=== PATIENT | female | born 1960 | race Caucasian/White ===

== ENCOUNTER 2022-11-14 07:56 | Day surgery (SDC) | payer OTHER, SELFPAY ==
[2022-11-14 08:48] VITALS: BP 162/85; TEMP 36.3; O2SAT 97
[2022-11-14 09:11] VITALS: BP 201/92; PULSE 42; RESP 20; O2SAT 98
[2022-11-14 09:17] VITALS: BP 170/85; PULSE 81; RESP 20; O2SAT 95
--- NOTE | 2022-11-14 11:35 | W.PM.PROCNOT ---
Date of procedure: 11/14/22 Procedure: Left Cervical 3/4, 4/5 facet injection Preop diagnosis includes pain secondary to cervical spondylosis, Postop diagnosis same Under fluoroscopic guidance Solution injected: 2milliliters Marcaine 0.25% Anesthesia :none Immediate complications none Time out process compliant After informed consent obtained from the patient placed in the Prone proposition . area was prepped and draped in a sterile fashion using betadine. 25 gauge spinal needle inserted over each of the above mentioned target areas . [place] were directed towards the target under fluoroscopic guidance . after encountering each of the targets , no indication of intravascular intraneuronal or intrathecal needle tip placement. Then 0 .5 to 1 Milliliter was injected at each level. [place] removed postoperatively. Patient transferred to recovery in stable condition to be discharged home after meeting criteria Surgeon: Tory Hilliard Condition: stable
[2022-11-15] MEDS: BUPIVACAINE HCL 0.25% PF 25 MG/10 ML VIAL INJ (12:33)
== END 2022-11-14 09:20 | disposition home or self-care (01) ==
PROVIDERS: PCP Internal Medicine; Visit Provider Anesthesiology Pain Medicine
DX: M47.812 Spondylosis without myelopathy or radiculopathy, cervical region (principal); M54.2 Cervicalgia
CPT/HCPCS: 64490; 64491

== ENCOUNTER 2022-12-07 08:55 | Outpatient (OUT) | payer OTHER, SELFPAY ==
--- NOTE | 2022-12-07 09:23 | PM.CN ---
Consult Note: HPI Data of Consult Patient: known to practice within the last 3 years Consult date: 12/07/22 Requesting Physician: HOLLIS MCKEON NP Primary Care Provider: SASCHA HENRY Consult Narrative Narrative: Patient is here for f/u of neck pain. She had initial MBB cervical left sided C3/4, C4/5 on 11/14/22. She recieved 100% relief of pain with increased fx for several hours after procedure. She would like to proceed with second MBB of same area. No radicular sx . No new sensorimotor sx or bowel or bladder issues. Medication regimen is controlling pain and assisting patient with ability to perform ADLs. cc:: CC: HOLLIS MCKEON NP Review of Systems ROS Status of ROS 10 or more systems reviewed and unremarkable except as noted in history and below Musculoskeletal Reports: neck pain PFSH PFSH Medical History (Updated 12/07/22 @ 09:36 by HOLLIS MCKEON NP) Surgical History Meds Home Medications and Allergies Home Medications Medication Instructions Recorded Confirmed Type baclofen 10 mg tablet 10 mg PO TID 11/08/22 11/14/22 History buspirone 5 mg PO QID 11/08/22 11/14/22 History levothyroxine 88 mcg capsule 88 mcg PO QDAY 11/08/22 11/14/22 History meloxicam 15 mg tablet 15 mg PO QDAY 11/08/22 11/14/22 History Allergies Allergy/AdvReac Type Severity Reaction Status Date / Time clindamycin Allergy Unknown Verified 11/08/22 15:26 Iodinated Contrast Media Allergy Unknown Verified 11/08/22 15:26 Penicillins Allergy Unknown Verified 11/08/22 15:26 avelox Allergy Unknown Uncoded 11/08/22 15:26 Exam Constitutional Documenting provider has reviewed patient's vital signs: yes Common normals: no apparent distress, average body habitus, oriented x3, no limitations, healthy appearing, alert and well nourished General appearance: cooperative, comfortable and well developed Orientation/consciousness: Yes awake, Yes oriented to person, Yes oriented to place and Yes oriented to time HENUT Common normals: normocephalic and moist oral mucous membranes Neck & C-Spine Common normals: full ROM General: normal visual inspection and trachea midline Cervical spine: pain with cervical ROM, cervical spine tenderness, paracervical muscle tenderness, paracervical muscle spasm and trapezius muscle tenderness Other: pain with ROM. Muscle strength 5/5 bilat UE with intact sensation Respiratory Common normals: normal respiratory effort, no retractions and no use of accessory muscles Effort & inspection: able to speak in complete sentences and symmetric chest movement Extremity Common normals: normal to inspection, full ROM and normal capillary refill Assessment and Plan Assessment and Plan (1) Cervical spondylosis: (2) Muscle spasm: Plan schedule for second left cervical MBB C3/4, C4/5 under fluoroscopy
== END 2022-12-07 08:56 | disposition home or self-care (01) ==
PROVIDERS: PCP Internal Medicine; Visit Provider Nurse Practitioner
DX: M47.812 Spondylosis without myelopathy or radiculopathy, cervical region (principal); M62.838 Other muscle spasm; M54.2 Cervicalgia
CPT/HCPCS: G0463

== ENCOUNTER 2023-01-23 08:41 | Day surgery (SDC) | payer OTHER, SELFPAY ==
[2023-01-23 09:00] VITALS: BP 156/94; PULSE 71; RESP 18; O2SAT 99
[2023-01-23 10:13] VITALS: BP 220/94; PULSE 84; RESP 20; O2SAT 100
[2023-01-23 10:14] VITALS: RESP 20
[2023-01-23] MEDS: BUPIVACAINE HCL 0.25% PF 25 MG/10 ML VIAL 4 ML INJ (10:14)
[2023-01-23 10:16] VITALS: BP 193/94; PULSE 86; O2SAT 98
--- NOTE | 2023-01-23 11:07 | W.PM.PROCNOT ---
Date of procedure: 01/23/23 Pre-op diagnosis: cervical spondylosis Post-op diagnosis: same as pre-op Procedure: Left cervical 3/4, 4,5 facet injection Under fluoroscopic guidance Solution injected: 2millilitersMarcaine 0.25% Immediate complications none Time out process compliant After informed consent obtained from the patient placed in the Prone proposition . area was prepped and draped in a sterile fashion using betadine. 25 gauge spinal needle inserted over each of the above mentioned target areas . [place] were directed towards the target under fluoroscopic guidance . after encountering each of the targets , no indication of intravascular intraneuronal or intrathecal needle tip placement. Then 0 .5 to 1 Milliliter was injected at each level. [place] removed postoperatively. patient transferred to recovery in stable condition to be discharged home after meeting criteria Anesthesia: Local Surgeon: Tory Hilliard Condition: stable
== END 2023-01-23 10:21 | disposition home or self-care (01) ==
LOC: SURGOUT 08:42
PROVIDERS: PCP Internal Medicine; Visit Provider Anesthesiology Pain Medicine
DX: M47.812 Spondylosis without myelopathy or radiculopathy, cervical region (principal)
CPT/HCPCS: 64490; 64491

== ENCOUNTER 2023-02-07 09:31 | Outpatient (OUT) | payer OTHER, SELFPAY ==
--- NOTE | 2023-02-07 10:00 | PM.CN ---
Consult Note: HPI Data of Consult Patient: known to practice within the last 3 years Requesting Physician: Jenna Hansen NP Primary Care Provider: SASCHA HENRY Consult Narrative Reason for consult: RFA follow up Narrative: Nereyda Burgos a pleasant 62 year old female presents for follow up on chronic neck pain. Patient reporting 100% pain relief and functional improvement immediately following and for one day after MBB #2 on left C3/4 4/5 facets. Patient would like to proceed with thermal RFA. cc:: CC: Jenna Hansen NP Review of Systems ROS Status of ROS 10 or more systems reviewed and unremarkable except as noted in history and below [facility] Medical History (Updated 02/07/23 @ 10:13 by Jenna Hansen NP) Surgical History Meds Home Medications and Allergies Home Medications Medication Instructions Recorded Confirmed Type baclofen 10 mg tablet 10 mg PO TID 11/08/22 01/23/23 History buspirone 5 mg PO QID 11/08/22 01/23/23 History levothyroxine 88 mcg capsule 88 mcg PO QDAY 11/08/22 01/23/23 History meloxicam 15 mg tablet 15 mg PO QDAY 11/08/22 01/23/23 History Allergies Allergy/AdvReac Type Severity Reaction Status Date / Time clindamycin Allergy Unknown Verified 01/23/23 08:57 Iodinated Contrast Media Allergy Unknown Verified 01/23/23 08:57 Penicillins Allergy Unknown Verified 01/23/23 08:57 avelox Allergy Unknown Uncoded 01/23/23 08:57 Exam Constitutional Documenting provider has reviewed patient's vital signs: yes Common normals: no apparent distress, oriented x3, healthy appearing, alert and well nourished General appearance: cooperative HENHI Common normals: normocephalic, hearing grossly normal bilaterally and moist oral mucous membranes Head and scalp: normocephalic Eye Common normals: PERRL Pupil: PERRL Neck & C-Spine General: normal visual inspection Cervical spine: cervical ROM abnormal, pain with cervical ROM and paracervical muscle tenderness Other: predominately axial neck pain sternocleidomastoid muscle tightness and tenderness Neck images: 1. 2. 3. Chest Common normals: inspection of chest normal Respiratory Common normals: normal respiratory effort, no retractions and no use of accessory muscles Neuro Common normals: oriented x3, CN's II-XII intact bilaterally, moves all extremities, no focal motor deficits, no sensory deficits noted, deep tendon reflexes 2+ bilaterally and gait normal Sensorium/orientation: alert Motor exam: strength 5/5 throughout and no movement abnormalities noted Other: no BUE or BLE numbness tingling or loss of strength Psych Common normals: mental status grossly normal, thought process normal, cooperative, affect normal, speech normal and activity/motor behavior normal Speech: normal speech Thought process: normal thought process Results Additional Findings Additional findings: I have checked an [place]AR[place] report on this patient today and there are no aberrancies noted in the prescribing history.?? A drug screen was completed and reviewed within the last year, and if there has not been a drug screen completed we ordered one today to monitor higher risk, state monitored pain medication use. As part of providing excellent, safe, comprehensive care, the following was completed at our patient's visit: 1. A medication reconciliation and review to ensure accurate knowledge of current/active medications, including asking our patients to inform us about any [id number] medications or herbal remedies/nutritional supplements/alternative remedies. 2. A review to specifically ensure our patients have had annual screening for: elevated body mass index (BMI), tobacco use, screening for depression, and screening for unhealthy alcohol use. When screening is concerning, patients are provided with education and the specific recommendation to discuss the concerning health issue and treatment options with their primary care provider. RINA 16% today with pain that prevents her from lifting heavy objects. The patient has had over 3 months of moderate to severe neck pain with functional impairment and inadequate response to conservative care including NSAIDS (unless there are contraindication such as concurrent blood thinners), multiple oral or topical pain medications, and home exercise program/physical therapy.? Patient has completed >6 weeks of guided home exercise program and/or formal physical therapy program without relief of their symptoms.? I have reviewed the imaging of the cervical spine and no red flags were identified.? The imaging reveals radiographic findings consistent with cervical spondylosis. Assessment and Plan Assessment and Plan (1) Cervical spondylosis: Assessment and Plan: We discussed the risks and benefits of the procedure with the patient, due to intolerance of previous test block it is beneficial to use IV sedation for the thermal RFA? The procedure will be completed with fluoroscopic guidance.? (2) Muscle spasm: (3) Sternocleidomastoid muscle tenderness: Assessment and Plan: patient has dental implants that are worked on twice a year, she will follow up with her doctor about increase in pain Plan left C3/4 4 thermal RFA with IV sedation under fluoroscopy continue baclofen 10mg TID, not interested in a rotation continue mobic 15mg daily encouraged topical NSAID or icy hot for sternocleidomastoid muscle tightness and tenderness f/u after RFA
== END 2023-02-07 09:32 | disposition home or self-care (01) ==
LOC: PM 09:32
PROVIDERS: PCP Internal Medicine; Visit Provider Nurse Practitioner
DX: M47.812 Spondylosis without myelopathy or radiculopathy, cervical region (principal); M62.838 Other muscle spasm; M79.18 Myalgia, other site
CPT/HCPCS: G0463

== ENCOUNTER 2023-03-13 06:37 | Day surgery (SDC) | payer OTHER, SELFPAY ==
[2023-03-13 07:07] VITALS: BP 149/83; PULSE 72; RESP 16; TEMP 36.3; O2SAT 99
[2023-03-13] MEDS: 0.9 % SODIUM CHLORIDE 500 ML IV (07:22)
[2023-03-13] MEDS: BUPIVACAINE HCL 0.25% PF 25 MG/10 ML VIAL INJ (07:32)
[2023-03-13] MEDS: LIDOCAINE HCL 2% 400 MG/20 ML MDV 15 ML INJ (07:35)
[2023-03-13] MEDS: METHYLPREDNISOLONE ACETATE 40 MG/ML VIAL INJ (07:35)
[2023-03-13 07:48] VITALS: BP 127/60; PULSE 82; RESP 18; O2SAT 100
[2023-03-13 07:53] VITALS: BP 124/56; PULSE 82; RESP 18; O2SAT 100
[2023-03-13 07:57] VITALS: BP 132/61; PULSE 84; RESP 16; TEMP 36.6; O2SAT 98
[2023-03-13 07:59] VITALS: BP 138/67; PULSE 82; RESP 16; TEMP 36.3; O2SAT 97
--- NOTE | 2023-03-13 08:50 | W.PM.PROCNOT ---
Date of procedure: 03/13/23 Pre-op diagnosis: Cervical Spondylosis Post-op diagnosis: same as pre-op Procedure: Left Cervical 3/4, 4/5 Radiofrequency ablation Under fluoroscopic guidance Rhizotomy was created using radio frequency ablation at 80?C for 90 seconds 1 to 2 lesions created at each site. Post lesioning injection of 2 mL each of 0.25% Marcaine and 2% lidocaine with Depo-Medrol 40mg. 0.5 to 1 mL injected at each site IV in place yes If Intravenous fluids: NS at KVO Anesthesia local 2% lidocaine for Anesthesia Other: MAC Timeout process compliant After informed consent obtained.Patient brought to the procedure room placed in the prone position skin overlying the area was prepped and draped in a sterile fashion using betadine. 25 gauge needle was used to create a skin wheal over each of the targeted areas utilizing 2% lidocaine. A rhizotomy needle with a 10 mm active tip was inserted over each of the anesthetized areas and directed towards each of the medial branches accomplished under fluoroscopic guidance. after encountering the same we had positive sensory stimulation, negative motor stimulation was noted. lesions were then created. Post lesioning, steroid solution was injected needles removed. Patient was transferred to recovery room in stable condition to be discharged home after meeting criteria. Anesthesia: MAC Surgeon: Tory Hilliard Condition: stable
== END 2023-03-13 08:17 | disposition home or self-care (01) ==
PROVIDERS: PCP Internal Medicine; Visit Provider Anesthesiology Pain Medicine
PROC: (CPT 01992; principal; 2023-03-13 07:30)
DX: M47.812 Spondylosis without myelopathy or radiculopathy, cervical region (principal)
CPT/HCPCS: 01992; 64633; 64634; J1030; J2704

== ENCOUNTER 2023-04-18 09:16 | Outpatient (OUT) | payer OTHER, SELFPAY ==
--- NOTE | 2023-04-18 09:45 | P.CN_ITS ---
Consult Note: HPI Data of Consult Patient: known to practice within the last 3 years Requesting Physician: Jenna Hansen NP Primary Care Provider: SASCHA HENRY Consult Narrative Reason for consult: RFA follow up Narrative: Nereyda Burgos a pleasant 62 year old female presents for follow up on chronic neck pain. Patient reporting 80% pain relief and functional improvement after left C3/4 C4/5 thermal RFA. Patient continues to have mild neck pain and muscle spasms and tighness. Patient utilizing mobic 15mg daily and baclofen 10mg TID. Patient not interested in changing medications.Today rating pain /10. cc:: CC: Jenna Hansen NP Review of Systems ROS Status of ROS 10 or more systems reviewed and unremarkable except as noted in history and below Musculoskeletal Reports: back pain PFSH PFSH Medical History (Updated 02/07/23 @ 10:13 by Jenna Hansen NP) Hypothyroid ?E03.9 - Hypothyroidism, unspecified (ICD-10) Mitral valve prolapse ?I34.1 - Nonrheumatic mitral (valve) prolapse (ICD-10) Neck pain ?M54.2 - Cervicalgia (ICD-10) Osteoarthritis ?M19.90 - Unspecified osteoarthritis, unspecified site (ICD-10) Surgical History H/O eye surgery ?Z98.890 - Other specified postprocedural states (ICD-10) H/O vitrectomy ?Z98.890 - Other specified postprocedural states (ICD-10) H/O: hysterectomy ?Z90.710 - Acquired absence of both cervix and uterus (ICD-10) History of appendectomy ?Z90.49 - Acquired absence of other specified parts of digestive tract (ICD- 10) History of total knee arthroplasty ?Z96.659 - Presence of unspecified artificial knee joint (ICD-10) History of tympanoplasty ?Z98.890 - Other specified postprocedural states (ICD-10) Hx of cholecystectomy ?Z90.49 - Acquired absence of other specified parts of digestive tract (ICD- 10) Hx of LASIK ?Z98.890 - Other specified postprocedural states (ICD-10) Meds Home Medications and Allergies Home Medications Medication Instructions Recorded Confirmed Type baclofen 10 mg tablet 10 mg PO TID 11/08/22 03/13/23 History buspirone 5 mg PO QID 11/08/22 03/13/23 History levothyroxine 88 mcg capsule 88 mcg PO QDAY 11/08/22 03/13/23 History meloxicam 15 mg tablet 15 mg PO QDAY 11/08/22 03/13/23 History Allergies Allergy/AdvReac Type Severity Reaction Status Date / Time clindamycin Allergy Unknown Verified 03/13/23 07:05 Iodinated Contrast Media Allergy Unknown Verified 03/13/23 07:05 Penicillins Allergy Unknown Verified 03/13/23 07:05 avelox Allergy Unknown Uncoded 03/13/23 07:05 Exam Constitutional Documenting provider has reviewed patient's vital signs: yes Common normals: no apparent distress, oriented x3, healthy appearing, alert and well nourished General appearance: cooperative HENMT Common normals: normocephalic, hearing grossly normal bilaterally and moist oral mucous membranes Head and scalp: normocephalic Eye Common normals: PERRL Pupil: PERRL Neck & C-Spine General: normal visual inspection Cervical spine: paracervical muscle tenderness Other: left sternocleidomastoid and trapezius muscle tightness and tenderness Chest Common normals: inspection of chest normal Respiratory Common normals: normal respiratory effort, no retractions and no use of accessory muscles Neuro Common normals: oriented x3, CN's II-XII intact bilaterally, moves all extremities, no focal motor deficits, no sensory deficits noted, deep tendon reflexes 2+ bilaterally and gait normal Sensorium/orientation: alert Motor exam: strength 5/5 throughout and no movement abnormalities noted Other: no BUE or BLE numbness tingling or loss of strength Psych Common normals: mental status grossly normal, thought process normal, cooperative, affect normal, speech normal and activity/motor behavior normal Speech: normal speech Thought process: normal thought process Assessment and Plan Assessment and Plan (1) Cervical spondylosis: (2) Muscle spasm: (3) Sternocleidomastoid muscle tenderness: Plan continue current medication regimen, declining rotation of muscle relaxant start lidocaine 5% patch 12 hours on 12 hours off declining TPI f/u 3 months, sooner if needed
== END 2023-04-18 09:17 | disposition home or self-care (01) ==
LOC: PM 09:17
PROVIDERS: PCP Internal Medicine; Visit Provider Nurse Practitioner
DX: M47.812 Spondylosis without myelopathy or radiculopathy, cervical region (principal); M62.838 Other muscle spasm; M79.18 Myalgia, other site
CPT/HCPCS: G0463

== ENCOUNTER 2023-09-20 10:29 | Outpatient (OUT) | payer OTHER, SELFPAY ==
--- NOTE | 2023-09-20 11:03 | P.CN_ITS ---
Consult Note: HPI Data of Consult Patient: known to practice within the last 3 years Requesting Physician: Jenna Hansen NP Primary Care Provider: SASCHA HENRY Consult Narrative Reason for consult: RFA follow up Narrative: Nereyda Burgos a pleasant 62 year old female presents for follow up on chronic neck pain. Patient reporting greater than 80% pain relief and functional improvement after left C3/4 C4/5 thermal RFA. Patient continues to have mild neck pain and muscle spasms and tightness. Patient utilizing mobic 15mg daily and baclofen 10mg TID through PCP. Today rating pain 1/10, increases with strenuous activity. cc:: CC: Jenna Hansen NP Review of Systems ROS Status of ROS 10 or more systems reviewed and unremark able except as noted in history and below Musculoskeletal Reports: neck pain PFSH PFSH Medical History Neck pain ?M54.2 - Cervicalgia (ICD-10) Osteoarthritis ?M19.90 - Unspecified osteoarthritis, unspecified site (ICD-10) Hypothyroid ?E03.9 - Hypothyroidism, unspecified (ICD-10) Mitral valve prolapse ?I34.1 - Nonrheumatic mitral (valve) prolapse (ICD-10) Surgical History H/O vitrectomy ?Z98.890 - Other specified postprocedural states (ICD-10) H/O eye surgery ?Z98.890 - Other specified postprocedural states (ICD-10) History of tympanoplasty ?Z98.890 - Other specified postprocedural states (ICD-10) History of total knee arthroplasty ?Z96.659 - Presence of unspecified artificial knee joint (ICD-10) History of appendectomy ?Z90.49 - Acquired absence of other specified parts of digestive tract (ICD- 10) H/O: hysterectomy ?Z90.710 - Acquired absence of both cervix and uterus (ICD-10) Hx of LASIK ?Z98.890 - Other specified postprocedural states (ICD-10) Hx of cholecystectomy ?Z90.49 - Acquired absence of other specified parts of digestive tract (ICD- 10) Meds Home Medications and Allergies Home Medications ?Medication ?Instructions ?Recorded ?Confirmed ?Type baclofen 10 mg tablet 10 mg PO TID 11/08/22 03/13/23 History buspirone 5 mg PO QID 11/08/22 03/13/23 History levothyroxine 88 mcg capsule 88 mcg PO QDAY 11/08/22 03/13/23 History meloxicam 15 mg tablet 15 mg PO QDAY 11/08/22 03/13/23 History Allergies Allergy/AdvReac Type Severity Reaction Status Date / Time clindamycin Allergy Unknown Verified 03/13/23 07:05 Iodinated Contrast Media Allergy Unknown Verified 03/13/23 07:05 Penicillins Allergy Unknown Verified 03/13/23 07:05 avelox Allergy Unknown Uncoded 03/13/23 07:05 Exam Constitutional Documenting provider has reviewed patient's vital signs: yes Common normals: no apparent distress, oriented x3, healthy appearing, alert and well nourished General appearance: cooperative HENMT Common normals: normocephalic, hearing grossly normal bilaterally and moist oral mucous membranes Head and scalp: normocephalic Eye Common normals: PERRL Pupil: PERRL Neck & C-Spine General: normal visual inspection Cervical spine: cervical ROM normal, normal cervical lordosis and paracervical muscle tenderness Chest Common normals: inspection of chest normal Respiratory Common normals: normal respiratory effort, no retractions and no use of accessory muscles Neuro Common normals: oriented x3, CN's II-XII intact bilaterally, moves all extremities, no focal motor deficits, no sensory deficits noted, deep tendon reflexes 2+ bilaterally and gait normal Sensorium/orientation: alert Motor exam: strength 5/5 throughout and no movement abnormalities noted Other: no BUE or BLE numbness tingling or loss of strength Psych Common normals: mental status grossly normal, thought process normal, cooperative, affect normal, speech normal and activity/motor behavior normal Speech: normal speech Thought process: normal thought process Assessment and Plan Assessment and Plan (1) Cervical spondylosis: (2) Myofascial pain: Plan left c3.4 c4/5 facet RFA providing significant ongoing improvement, greater then 80% improvement in pain and functional ability continue medications through PCP continue HEP as tolerated f/u 1 year, sooner if needed
== END 2023-09-20 10:30 | disposition home or self-care (01) ==
LOC: PM 10:30
PROVIDERS: PCP Internal Medicine; Visit Provider Nurse Practitioner
DX: M47.812 Spondylosis without myelopathy or radiculopathy, cervical region (principal); M79.18 Myalgia, other site
CPT/HCPCS: G0463